=== PATIENT | female | born 1985 | race Asian ===

== ENCOUNTER 2024-05-30 06:58 | Outpatient (REF) | payer OTHER, SELFPAY ==
--- NOTE | ~2024-05-30 | US_ITS ---
EXAMINATION: US PELVIS CLINICAL INFORMATION: Irregular menses, last menstrual period one month ago. COMPARISON: None available. TECHNIQUE: Ultrasound of the pelvis is performed using both transabdominal and transvaginal transducers along with Doppler. Transvaginal imaging is performed due to inadequate visualization transabdominally. FINDINGS: Uterus is retroverted and measures 7.8 x 3.8 x 5.0 cm. Endometrial thickness is 8 mm. Tiny cystic space within the endometrial cavity. No significant free fluid. Right ovary measures 2.3 x 2.4 x 2.1 cm, volume 5.1 mL and is unremarkable. Left ovary measures 3.5 x 2.3 x 2.1 cm, volume 8.9 mL. Left ovarian 1.6 x 1.4 x 1.2 cm cysts appear simple. There is no specific indication for additional imaging at this time. US/US pelvic and transvaginal IMPRESSION: 1. Endometrial thickness is 8 mm. Tiny cystic space within the endometrial cavity. 2. Left ovarian 1.6 cm cysts appear simple. There is no specific indication for additional imaging at this time. This study was presented today June 07, 2024 for interpretation. Stat results provided at this time as requested by referring provider.
== END 2024-05-30 06:59 | disposition home or self-care (01) ==
LOC: HO.UMASIMG 06:58
PROVIDERS: Visit Provider Nurse Practitioner Women's Health
DX: R10.2 Pelvic and perineal pain (principal)
CPT/HCPCS: 76830; 76856